=== PATIENT | male | born 2000 | race Caucasian/White ===

== ENCOUNTER 2020-04-06 22:04 | Emergency (ER) | payer BC ==
[~2020-04-06] VITALS: Ht 175.3 cm; Wt 74.8 kg
[2020-04-07 00:19] VITALS: BP 133/76
== END 2020-04-07 00:22 | disposition home or self-care (01) ==
LOC: ER 22:04
DX: S00.83XA Contusion of other part of head, initial encounter (principal); H93.11 Tinnitus, right ear; W21.03XA Struck by baseball, initial encounter; Y93.89 Activity, other specified; Y92.39 Other specified sports and athletic area as the place of occurrence of the external cause; Y99.8 Other external cause status